=== PATIENT | female | born 1965 | race American Indian/Alaskan Native ===

== ENCOUNTER 2018-07-19 18:04 | Emergency (ER) | payer SELFPAY ==
[2018-07-19 18:33] VITALS: BP 179/81
--- NOTE | 2018-07-19 18:38 | Emergency Department Report ---
Blank Doc - Documentation Documentation: This is a 53 y.o. female that presents with cough x 2 weeks. History of sarco idosis which affects the lungs and HTN. Patient reports off blood pressure medication for 2 weeks. She is requesting a refill of HCTZ 25 mg po daily. This initial assessment diagnostic orders/clinical plan/treatment(s) is/are subject to change based on patient's health status, clinical progression and re- assessment by fellow clinical providers in the ED. Further treatment and workup at subsequent clinical providers discretion. Patient/guardians urged not to elope from ED s their condition may be serious if not clinically assessed and managed. Initial orders include: 1- CXR Fast track for further evaluation.
--- NOTE | 2018-07-21 15:57 | XRay Report ---
FINAL REPORT EXAM: XR CHEST ROUTINE 2V HISTORY: cough TECHNIQUE: PA and lateral views of the chest PRIORS: None. FINDINGS: Lines, tubes, and devices: N/A Lungs and pleura: Trachea is normal in position. There is a 2.5 cm nodular density in the left suprah ilar region. Lungs are otherwise clear of infiltrate, pleural effusion, vascular congestion, or pneum othorax. Cardiomediastinal silhouette: Cardiac and mediastinal silhouettes are unremarkable. Other: Bony structures are intact. IMPRESSION: Nodule in the left suprahilar region. CT is recommended.
== END 2018-07-19 21:30 | disposition left against medical advice (07) ==
LOC: ED 18:04
DX: I10 Essential (primary) hypertension (principal)
CPT/HCPCS: 71046; 99283